=== PATIENT | female | born 1950 | race Caucasian/White ===

== ENCOUNTER 2016-09-04 14:47 | Inpatient (IN) | payer MEDICARE, OTHER ==
[2016-09-04 19:45] VITALS: BP 110/70
--- NOTE | 2016-09-04 19:45 | NUR ---
Patient arrived to the facility via gurney by [facility]. Diagnosis of Right hip fracture s/p Right hip nailing. Patient is alert and oriented x4. Patient verbally responsive and able to make needs known. Sister at bedside. No c/o pain and discomfort at this time. No acute distress. No SOB. Patient is on room air. Right hip suture site is intact. No s/s of bleeding. Dressing intact. Kept clean and dry. Dr. Alarcon in facility and made aware of admission. Dr. Alarcon went over pain medication for patient. New orders noted. Called Dr. Weinstein office to notify of new admission and to go over other medications. Dr. Rucker airfield operations specialist. Awaiting call back. All needs attended to promptly. Call light within reach. Will continue to monitor.
[2016-09-04] MEDS ORDERED: HYDROMORPHONE 1 MG/1 ML DISP.SYRIN IM PRN (20:00)
--- NOTE | 2016-09-04 20:05 | NUR ---
Still awaiting call back from . Called Dr. Weinstein office back and spoke to Soniya. Per Soniya, she will send message to Dr. Rucker.
--- NOTE | 2016-09-04 20:30 | NUR ---
Received call back from Dr. Rucker and went over patients medications. New orders noted and carried out.
[2016-09-04] MEDS ORDERED: ACET-2154 PO (20:34)
[2016-09-04] MEDS ORDERED: BISA-79 PO (20:36)
[2016-09-04] MEDS ORDERED: ONDA4TAB10 PO (20:46)
[2016-09-04] MEDS ORDERED: HYDR-4077 PO (20:46)
[2016-09-04] MEDS ORDERED: PANT40TA4 PO (20:51)
[2016-09-04] MEDS ORDERED: ZOLP5TAB2 PO (20:51)
[2016-09-04] MEDS ORDERED: MAGNESIUM HYDROXIDE 30 ML LIQUID UDC PO PRN (21:15)
[2016-09-04] MEDS ORDERED: ONDANSETRON HCL 4 MG TABLET PO PRN (21:15)
[2016-09-04] MEDS ORDERED: hydrALAZINE HCL 50 MG TABLET PO PRN (21:15)
[2016-09-04] MEDS ORDERED: BISACODYL 10 MG SUPP.RECT RC PRN (21:15)
[2016-09-04 21:28] VITALS: BP 110/70
--- NOTE | 2016-09-04 21:30 | NUR ---
Patient verbalized that she did not want to use a bedpan because she is unable to move and turn to either sides. Offered to put a diaper on her and she verbalized that she did not want to wear a diaper. Patient verbalized she wanted to use a bedside commode and would be able to with assistance. She verbalized she worked with PT at [facility] and was able to walk to and from the bathroom post surgery. Verbalized to patient that she would need to be evaluated by PT/OT at our facility before we are able to get her out of bed for her safety. Patient verbalized she would just urinate in her raul if needed. She verbalized she just wanted to be left alone and to turn lights off so she could get some rest. Patient also asked for pain medication. NURIA Rodriguez made aware. Reminded patient to call for help when assistance is needed. All needs attended to promptly. Call light within reach. Will continue to monitor.
--- NOTE | 2016-09-04 21:30 | NUR ---
Patient refused to be repositioned. She verbalized that she did not want to be touched and is unable to turn on either side. Explained to patient the risks and benefits of not being repositioned and educated patient on pressure ulcers. Patient still strongly refused to be touched. Encouraged patient to use call light when she urinates. Verbalizes understanding. All needs attended to promptly. Call light within reach. Will continue to monitor.
[2016-09-04] MEDS: OXYCODONE/APAP 5-325 MG TABLET PO PRN (21:41)
--- NOTE | 2016-09-04 22:00 | NUR ---
Patient is comfortably sleeping at this time. Breathing normally. No acute distress noted. No SOB. Will continue to monitor.
--- NOTE | 2016-09-05 07:28 | NUR ---
Pt slept well through out the night. Remains irritable and somewhat angry but able to calm down. Pt was able to urinate x1 with use of bedpan. No acute distress noted.
[2016-09-05] MEDS: PANTOPRAZOLE SODIUM 40 MG TABLET.DR PO SCH (07:52)
--- NOTE | 2016-09-05 07:55 | NUR ---
Received patient awake in bed. Alert and oriented x4. No complaints of pain and discomfort. Irritable but cooperative. Encouraged to make needs known and use call light. Call light within reach.
[2016-09-05 08:39] VITALS: BP 105/51
[2016-09-05] MEDS ORDERED: Z GUARD REMEDY PASTE 57 GM TUBE TOP PRN (10:15)
[2016-09-05] MEDS: ACETAMINOPHEN 325 MG TABLET PO PRN (10:31)
--- NOTE | 2016-09-05 10:34 | NUR ---
PATIENT TOLERATED THERAPY WITH MILD PAIN OVER LOWER BACK AND RIGHT LEG RATED 6/10. TYLENOL PRN GIVEN.
--- NOTE | 2016-09-05 16:00 | NUR ---
NO COMPLAINTS OF PAIN OR DISCOMFORT AT THIS TIME. DRESSING CHANGED OVER SURGICAL SITE DONE.
--- NOTE | 2016-09-05 19:30 | NUR ---
Received patient sleeping in bed, no s/s of distress. Call light within reach. Will continue to monitor.
[2016-09-05 21:40] VITALS: BP 112/53
[2016-09-05] MEDS: OXYCODONE/APAP 5-325 MG TABLET PO PRN (22:06)
[2016-09-06] MEDS: PANTOPRAZOLE SODIUM 40 MG TABLET.DR PO SCH ×2 (06:01→08:00)
--- NOTE | 2016-09-06 07:05 | NUR ---
Patient resting in bed, no s/s of distress. No complaints of pain during the shift. Call light kept within reach. Due meds given. Needs attended. Frequent checks done. Refused Protonix this morning, saying she already talked to the MD about not needing it. Endorsed accordingly.
[2016-09-06 08:17] LABS: BASOPHILS % (AUTO) 0.5 % (0.0-2.0); EOSINOPHILS # (AUTO) 0.1 K/uL (0.0-0.7); EOSINOPHILS % (AUTO) 2.6 % (0.0-7.0); HEMOGLOBIN 7.4 G/DL (12.0-16.0); LYMPHOCYTES # (AUTO) 0.8 K/UL (0.8-4.8); LYMPHOCYTES % (AUTO) 19.4 % (20.5-51.5); MEAN CORPUSCULAR HEMOGLOBIN 30.3 UUG (27.0-31.0); MEAN CORPUSCULAR HGB CONC 34 g/dL (32.0-37.0); MEAN CORPUSCULAR VOLUME 90.1 FL (81.0-99.0); MONOCYTES # (AUTO) 0.4 K/UL (0.1-1.30); NEUTROPHILS # (AUTO) 3.1 K/UL (1.8-8.9); NEUTROPHILS % (AUTO) 68.5 % (38.5-71.5); PLATELET COUNT (AUTO) 215 K/UL (150-450); WHITE BLOOD COUNT (AUTO) 4.4 K/UL (4.0-11.2)
[2016-09-06 08:23] LABS: CREATININE 0.6 mg/dL (0.6-1.3); MAGNESIUM 1.9 mg/dL (1.8-2.4); POTASSIUM 3.6 mmol/L (3.5-5.1)
--- NOTE | 2016-09-06 08:30 | NUR ---
NSG: Received patient awake in bed.Pleasant upon approach. Alert and oriented x4. No complaints of pain and discomfort. Irritable but cooperative. Encouraged to make needs known and use call light. Call light within reach.
[2016-09-06 08:42] LABS: RED BLOOD CELL COUNT(AUTO) 2.46 MIL/UL (4.2-5.4)
[2016-09-06 08:43] LABS: HEMATOCRIT 22.2 % (37-47)
--- NOTE | 2016-09-06 08:45 | NUR ---
Received a report from laboratory per Praneeth result of Hgb 7.4, Hct 22.2, RBC 2.46. Notified Dr. Rucker who is in the unit with no new orders at this time and that he will check on it
[2016-09-06] MEDS: OXYCODONE/APAP 5-325 MG TABLET PO PRN ×3 (08:54→21:06)
[2016-09-06] MEDS: LOSARTAN POTASSIUM 50 MG TABLET PO SCH (08:55)
[2016-09-06] MEDS: ENOXAPARIN SODIUM 40 MG/0.4 ML DISP.SYRIN SQ SCH (09:53)
[2016-09-06 11:12] VITALS: BP 114/57
[2016-09-06] MEDS: ACETAMINOPHEN 325 MG TABLET PO PRN (11:28)
--- NOTE | 2016-09-06 11:28 | NUR ---
nsg: patient c/o headache. tylenol 650 mg po given per patient requested.
--- NOTE | 2016-09-06 12:30 | NUR ---
nsg: patient stated i am feeling better now. no more headache. prn effective.
--- NOTE | 2016-09-06 14:42 | NUR ---
NSG: PATIENT C/O RIGHT HIP PAIN PERCOCET 10 MG PO GIVEN.
--- NOTE | 2016-09-06 15:45 | NUR ---
nsg:patient stated ,i am feeling better now. prn for pain effective.
--- NOTE | 2016-09-06 18:06 | NUR ---
NSG: REMAIN CALM AND COOPERATIVE WITH CARE. NO C/O PAIN OR DISCOMFORT THIS TIME. CONTINUE MONITORING FOR SAFETY.
--- NOTE | 2016-09-06 19:30 | NUR ---
Patient resting on her bed, no acute distress noted. Complains of some pain, will provide interventions. Call light within reach. Will continue to monitor.
--- NOTE | 2016-09-07 07:59 | NUR ---
Patient awake with no s/s of distress. No complaints of pain at this time. Call light kept within reach. Frequent checks done. Pain meds given last night as ordered. Verbalized relief after interventions. Endorsed accordingly.
[2016-09-07] MEDS: OXYCODONE/APAP 5-325 MG TABLET PO PRN ×2 (08:49→14:50)
[2016-09-07] MEDS: LOSARTAN POTASSIUM 50 MG TABLET PO SCH (08:50)
[2016-09-07] MEDS: ENOXAPARIN SODIUM 40 MG/0.4 ML DISP.SYRIN SQ SCH (08:56)
--- NOTE | 2016-09-07 09:00 | NUR ---
Patient complained of pain rated as 8/10 over Right hip radiating to knee. PRN medications given. Tolerated therapy well
[2016-09-07 10:12] VITALS: BP 133/72
--- NOTE | 2016-09-07 14:35 | NUR ---
Received patient awake in bed. Alert and oriented. No s/s of distress. Call light within reach
[2016-09-07 15:33] VITALS: BP 133/72
--- NOTE | 2016-09-07 16:00 | NUR ---
Patient requested pain medications pain rated as 8/10 over Right Hip. Tolerated therapy well.
--- NOTE | 2016-09-07 19:15 | NUR ---
Received report from NURIA Phipps. Pt currently in the bed, awake watching TV. Requested to have some mild pain meds before she sleeps. She reported to me what she did w/ PT/OT, she stated that she wants to get better so she go home right away.[id number] uses bedside commode.
--- NOTE | 2016-09-07 20:30 | NUR ---
Tylenol given for mild pain 3-4/10 located at right hip, julián intact CDI. Cleansed the site w/ damped NS, patted dry, applied new sterile dressing, CDI.
[2016-09-07] MEDS: ACETAMINOPHEN 325 MG TABLET PO PRN (20:47)
[2016-09-07 21:13] VITALS: BP 110/50
--- NOTE | 2016-09-08 | NUR ---
Sound asleep and appears comfortable.
--- NOTE | 2016-09-08 02:00 | NUR ---
Remained sound asleep.Breathing normally.
--- NOTE | 2016-09-08 04:00 | NUR ---
Sound asleep, breathing normally.Continue monitor
--- NOTE | 2016-09-08 06:43 | NUR ---
Protonix not available in the Py[facility], notified Coagulator, not given, will endorsed to day shift RN.
[2016-09-08] MEDS: PANTOPRAZOLE SODIUM 40 MG TABLET.DR PO SCH (07:00)
[2016-09-08 08:00] VITALS: BP 106/56
[2016-09-08] MEDS: LOSARTAN POTASSIUM 50 MG TABLET PO SCH (09:00)
--- NOTE | 2016-09-08 09:30 | NUR ---
Received patient awake in bed. Alert and oriented x4. No S/S of distress. Pain rated as 6/10 over right knee. PRN Tylenol 650n mg given. Call light within reach. Encouraged to call for needs
[2016-09-08] MEDS: ACETAMINOPHEN 325 MG TABLET PO PRN ×2 (09:57→20:13)
[2016-09-08] MEDS: ENOXAPARIN SODIUM 40 MG/0.4 ML DISP.SYRIN SQ SCH (10:01)
--- NOTE | 2016-09-08 10:30 | NUR ---
Patient still had no BM. Informed Dr. Alarcon, Ducolax PO 2 tabs daily PRN ordered. Offered to patient but opted to have Dulcolax tomorrow or tonight because she said she is expecting visitors.
--- NOTE | 2016-09-08 13:00 | NUR ---
Assisted patient to ambulate. Ambulated with rolling walker, stand by assist. With tolerable pain after ambulation. Offered pain medications but refused.
--- NOTE | 2016-09-08 20:00 | NUR ---
RECEIVED PATIENT AWAKE IN BED. PATIENT IS A/O X4. ASSISTED PATIENT TO BSC. DRESSING NOTED TO RIGHT HIP/LOWER LEG, CLEAN, DRY AND INTACT.
--- NOTE | 2016-09-08 20:15 | NUR ---
PATIENT ASSISTED BACK TO BED. DENIES NEEDS FOR "PAIN MEDICATION," BUT PATIENT IS REQUESTING FOR TYLENOL. PATIENT UNABLE TO HAVE BM AT THIS TIME. PATIENT GIVEN DULCOLAX 10MG PO PRN FOR CONSTIPATION AND TYLENOL 650MG PO PRN FOR MILD DISCOMFORT. NO RESP. DISTRESS NOTED. VSS. CALL LIGHT IN REACH. ALL NEEDS ATTENDED, WILL CONTINUE TO MONITOR.
[2016-09-08 20:21] VITALS: BP 114/55
[2016-09-08] MEDS ORDERED: BISACODYL 5 MG TABLET.DR PO PRN (21:00)
[2016-09-09] MEDS: PANTOPRAZOLE SODIUM 40 MG TABLET.DR PO SCH (06:12)
--- NOTE | 2016-09-09 06:55 | NUR ---
PATIENT AWAKE IN BED. DENIES PAIN. DRESSING NOTED TO RIGHT HIP, C/D/I. SLEPT WELL. CALL LIGHT IN REACH. ALL NEEDS ATTENDED. WILL CONTINUE TO MONITOR.
[2016-09-09 07:27] LABS: BASOPHILS % (AUTO) 0.4 % (0.0-2.0); EOSINOPHILS # (AUTO) 0.1 K/uL (0.0-0.7); EOSINOPHILS % (AUTO) 1.6 % (0.0-7.0); HEMOGLOBIN 7.9 G/DL (12.0-16.0); LYMPHOCYTES # (AUTO) 0.6 K/UL (0.8-4.8); LYMPHOCYTES % (AUTO) 12.1 % (20.5-51.5); MEAN CORPUSCULAR HEMOGLOBIN 30.5 UUG (27.0-31.0); MEAN CORPUSCULAR HGB CONC 33 g/dL (32.0-37.0); MEAN CORPUSCULAR VOLUME 91.4 FL (81.0-99.0); MONOCYTES # (AUTO) 0.4 K/UL (0.1-1.30); MONOCYTES % (AUTO) 8.9 % (0.0-11.0); NEUTROPHILS # (AUTO) 3.7 K/UL (1.8-8.9); PLATELET COUNT (AUTO) 365 K/UL (150-450); RED BLOOD CELL COUNT(AUTO) 2.61 MIL/UL (4.2-5.4); WHITE BLOOD COUNT (AUTO) 4.8 K/UL (4.0-11.2)
[2016-09-09 07:42] LABS: HEMATOCRIT 23.9 % (37-47)
--- NOTE | 2016-09-09 07:50 | NUR ---
NSG: PATIENT HGB 7.9 AND HCT 23.[address] torrez.
[2016-09-09 08:00] VITALS: BP 117/55
[2016-09-09] MEDS: ACETAMINOPHEN 325 MG TABLET PO PRN ×3 (08:18→21:12)
[2016-09-09] MEDS: LOSARTAN POTASSIUM 50 MG TABLET PO SCH (08:19)
[2016-09-09] MEDS: ENOXAPARIN SODIUM 40 MG/0.4 ML DISP.SYRIN SQ SCH (08:20)
--- NOTE | 2016-09-09 08:20 | NUR ---
NSG:Received patient sitting up in bed. Alert and oriented x4. No S/S of distress. patient c/o pain 6/10 over right knee. PRN Tylenol 650n mg given. Call light within reach. Encouraged to call for needs.
--- NOTE | 2016-09-09 08:20 | NUR ---
NSG: PATIENT C/O GEN: PAIN. TYLENOL 650 MG PO GIVEN PER PATIENT REQUESTED.
[2016-09-09 08:46] LABS: CREATININE 0.6 mg/dL (0.6-1.3); POTASSIUM 4.3 mmol/L (3.5-5.1)
--- NOTE | 2016-09-09 09:00 | NUR ---
nsg: patient HGB 7.9 AND HCT 23.9, Dr. guzman. D NOTIFIED WAS IN UNIT THIS TIME. STATED OK. NO NEW ORDER RECEIVED.
--- NOTE | 2016-09-09 09:20 | NUR ---
NSG: PATIENT STATED I AM FEELING BETTER NOW. PRN EFFECTIVE.
--- NOTE | 2016-09-09 14:07 | NUR ---
NSG: PATIENT C/O RIGHT KNEE. TYLENOL 650 MG PO GIVEN PER PATIENT REQUESTED.
--- NOTE | 2016-09-09 18:30 | NUR ---
pt states that she is in pain but refuses percocet because she states that it causes constipation. pt tried going to have a bm but states that it could not go. will endorse to nightman nurse about taping surgical wound and bm stool sample to be collected.
[2016-09-09 20:00] VITALS: BP 115/53
[2016-09-09] MEDS: ZOLPIDEM 5 MG TABLET PO PRN (21:12)
--- NOTE | 2016-09-10 05:16 | NUR ---
PT C/O GEN PAIN LAST NIGHT, WAS GIVEN TYLENOL REQUESTED AND PRESCRIBED, ALSO GIVEN AMBIEN REQUESTED, PT SLEPT MOST SHIFT. ASSISTED WITH ADLS. IN NO ACUTE DISTRESS. SAFETY MAINTAINED THROUGHOUT SHIFT. CALL LIGHT WITHIN REACH.
[2016-09-10] MEDS: PANTOPRAZOLE SODIUM 40 MG TABLET.DR PO SCH (06:28)
--- NOTE | 2016-09-10 06:36 | NUR ---
PT REFUSED PROTONIX IN AM. "I DON'T NEED IT."
[2016-09-10 07:45] LABS: BASOPHILS % (AUTO) 0.4 % (0.0-2.0); EOSINOPHILS # (AUTO) 0.1 K/uL (0.0-0.7); HEMATOCRIT 25.6 % (37-47); HEMOGLOBIN 8.5 G/DL (12.0-16.0); LYMPHOCYTES # (AUTO) 0.7 K/UL (0.8-4.8); LYMPHOCYTES % (AUTO) 13.3 % (20.5-51.5); MEAN CORPUSCULAR HEMOGLOBIN 30.2 UUG (27.0-31.0); MEAN CORPUSCULAR HGB CONC 33 g/dL (32.0-37.0); MEAN CORPUSCULAR VOLUME 91.3 FL (81.0-99.0); MONOCYTES # (AUTO) 0.4 K/UL (0.1-1.30); MONOCYTES % (AUTO) 8.1 % (0.0-11.0); NEUTROPHILS # (AUTO) 4.2 K/UL (1.8-8.9); NEUTROPHILS % (AUTO) 76.2 % (38.5-71.5); PLATELET COUNT (AUTO) 437 K/UL (150-450); WHITE BLOOD COUNT (AUTO) 5.4 K/UL (4.0-11.2)
[2016-09-10 08:00] VITALS: BP 109/49
[2016-09-10] MEDS: ENOXAPARIN SODIUM 40 MG/0.4 ML DISP.SYRIN SQ SCH (08:37)
[2016-09-10] MEDS: ACETAMINOPHEN 325 MG TABLET PO PRN ×2 (08:38→18:16)
[2016-09-10] MEDS: LOSARTAN POTASSIUM 50 MG TABLET PO SCH (08:38)
[2016-09-10] MEDS ORDERED: SENNOSIDES/DOCUSATE SODIUM TABLET PO SCH (09:00)
[2016-09-10 14:06] LABS: VIT D, 25-HYDROXY 65.6 ng/mL (30.0-100.0)
--- NOTE | 2016-09-10 18:58 | NUR ---
pt still had no bowel movement. pt tolerated pt well. pt had dresssing changed. pt had no signs of distress nor complications. pt still didnt get enough nutrition. pt still refuses protonix. pt was helped to the bathroom. will continue to endorse stool sample.
--- NOTE | 2016-09-10 19:30 | NUR ---
Patient resting on her bed. No s/s of distress. Respirations even and unlabored. Reminded to call for help whenever necessary. Call light within reach. Will continue to monitor.
[2016-09-10] MEDS ORDERED: DOCUSATE SODIUM 100 MG CAPSULE PO SCH (21:00)
[2016-09-10] MEDS: ZOLPIDEM 5 MG TABLET PO PRN (21:04)
[2016-09-10 22:13] VITALS: BP 125/52
--- NOTE | 2016-09-11 06:59 | NUR ---
Patient asleep in bed with no s/s of distress. No complaints of pain at this time. Slept well through the night, Ambien administered per patient's request. . Due meds given. Needs attended. Comfort measures provided. Call light kept within reach. Safety precautions in place. X-ray of right knee ordered for this morning as ordered by Dr. Alarcon. Frequent checks done. Endorsed accordingly.
[2016-09-11] MEDS: PANTOPRAZOLE SODIUM 40 MG TABLET.DR PO SCH (07:00)
--- NOTE | 2016-09-11 07:25 | NUR ---
Refused Protonix despite health teaching.
[2016-09-11 08:20] VITALS: BP 121/70
--- NOTE | 2016-09-11 08:30 | NUR ---
RECEIVED PATIENT AWAKE, ALERT AND ORIENTED X4. NOT IN ANY FORM OF DISTRESS. ASSISTED PATIENT TO COMMODE. WITH + BM. STOOL COLLECTED FOR OCCULT BLOOD ORDERED BY .
[2016-09-11] MEDS: ACETAMINOPHEN 325 MG TABLET PO PRN ×2 (09:43→16:37)
[2016-09-11] MEDS: SENNOSIDES/DOCUSATE SODIUM TABLET PO SCH (09:45)
[2016-09-11] MEDS: LOSARTAN POTASSIUM 50 MG TABLET PO SCH (09:45)
[2016-09-11] MEDS: ENOXAPARIN SODIUM 40 MG/0.4 ML DISP.SYRIN SQ SCH (09:47)
--- NOTE | 2016-09-11 09:50 | NUR ---
PATIENT COMPLAINED OF KNEE PAIN RATED 7/10 AFTER THERAPY. PRN TYLENOL GIVEN. WAS ABLE TO AMBULATE AND USE STAIRS. ASSISTED TO BED. WITH SISTER AT BEDSIDE
--- NOTE | 2016-09-11 11:25 | NUR ---
Electrostatic Painter Sw met with the patient at bedside to assess pt needs and provide support. The patient is a 65 year old female admitted for right hip fracture S/P Right Hip ORIF, functional impairment, and impaired mobility. The patient was laying in her bed during the assessment wit her sister/emergency contact, Shiela Hand [ ] at her bedside. The patient was calm and cooperative the interview. The patient's mood was irritable and somewhat guarded. The patient stated that she has been very frustrated recently due to her condition and impaired mobility. Per pt, she lives at home independently [[id number] [place] [address]; ]. The patient acknowledged her condition and need for intervention. The patient stated that she has strong social support from her sister Shiela. Social History: The patient stated that she was born in [facility] and raised in [place]. The patient stated that she was raised primarily by her mother since her parents were when she was young. The patient then moved to [place] in 1969. The patient stated that she has never been and that she has no children. 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 The patient stated that her goal is to return home and to be able to walk independently again. The patient stated that she is usually a very active person and that she has been feeling frustrated and depressed after she fell and fractured her hip. The patient stated that her relatives are coming into town to stay with her on 09/19/16 and will be staying with her at her apartment. SW engaged in active listening and provided supportive counseling during the interview to address patient's depressive symptoms related to her decline in functioning. SW will continue to address issues of loss related to recent hospitalization. SW will encourage compliance with rehab goals. SW will be available as needed.
--- NOTE | 2016-09-11 14:31 | NUR ---
Rehab Team Conference Meeting 09/11/16
--- NOTE | 2016-09-11 16:35 | NUR ---
Tolerated therapy but patient complained of R knee pain rated as 6/10. Tylenol given.
--- NOTE | 2016-09-11 18:00 | NUR ---
Patient resting in bed. No complaints of Right knee pain at the moment.
--- NOTE | 2016-09-11 20:00 | NUR ---
PATIENT AWAKE IN BED. A/O X4. DENIES PAIN OR DISCOMFORT. NO RESP. DISTRESS NOTED. DRESSING NOTED TO RIGHT HIP, THIGH AND LATERAL KNEE. VSS. CALL LIGHT IN REACH. ALL NEEDS ATTENDED. WILL CONTINUE TO MONITOR AND ASSESS.
[2016-09-11 20:12] VITALS: BP 100/49
--- NOTE | 2016-09-11 21:15 | NUR ---
DRESSING CHANGED TO RIGHT HIP. PICTURES TAKEN AND PLACED IN CHART. PATIENT DENIES PAIN OR DISCOMFORT. WILL CONTINUE TO MONITOR AND ASSESS.
[2016-09-11] MEDS: ZOLPIDEM 5 MG TABLET PO PRN (21:46)
[2016-09-12] MEDS: PANTOPRAZOLE SODIUM 40 MG TABLET.DR PO SCH (06:21)
--- NOTE | 2016-09-12 07:04 | NUR ---
PATIENT ASLEEP IN BED. SLEPT WELL THROUGHOUT THE NIGHT. DRESSING CLEAN, DRY AND INTACT. CALL LIGHT IN REACH. ALL NEEDS ATTENDED. WILL CONTINUE TO MONITOR.
[2016-09-12 07:45] LABS: BASOPHILS % (AUTO) 0.6 % (0.0-2.0); EOSINOPHILS # (AUTO) 0.2 K/uL (0.0-0.7); HEMOGLOBIN 9.6 G/DL (12.0-16.0); LYMPHOCYTES % (AUTO) 14.4 % (20.5-51.5); MEAN CORPUSCULAR HEMOGLOBIN 30.8 UUG (27.0-31.0); MEAN CORPUSCULAR HGB CONC 33 g/dL (32.0-37.0); MEAN CORPUSCULAR VOLUME 92.4 FL (81.0-99.0); MONOCYTES # (AUTO) 0.4 K/UL (0.1-1.30); MONOCYTES % (AUTO) 5.6 % (0.0-11.0); NEUTROPHILS # (AUTO) 5.2 K/UL (1.8-8.9); NEUTROPHILS % (AUTO) 76.4 % (38.5-71.5)
[2016-09-12 07:54] LABS: HEMATOCRIT 28.7 % (37-47); PLATELET COUNT (AUTO) 622 K/UL (150-450); RED BLOOD CELL COUNT(AUTO) 3.11 MIL/UL (4.2-5.4); WHITE BLOOD COUNT (AUTO) 6.8 K/UL (4.0-11.2)
[2016-09-12 08:00] LABS: BILIRUBIN,TOTAL 1.9 mg/dL (0.2-1.0); CREATININE 0.7 mg/dL (0.6-1.3); MAGNESIUM 1.9 mg/dL (1.8-2.4); PHOSPHOROUS 4.1 mg/dL (2.5-4.9); POTASSIUM 3.8 mmol/L (3.5-5.1); TOTAL PROTEIN, SERUM 6.7 g/dL (6.4-8.2)
[2016-09-12 08:03] VITALS: BP 122/59
--- NOTE | 2016-09-12 08:30 | NUR ---
RECEIVED PATIENT AWAKE IN BED. NO S/S OF DISTRESS. NO COMPLAINTS OF PAIN OR DISCOMFORT AT THE MOMENT. CALL LIGHT WITHIN REACH. DISCUSSED SCHEDULE FOR OT AND PT.
[2016-09-12] MEDS: SENNOSIDES/DOCUSATE SODIUM TABLET PO SCH (09:00)
[2016-09-12] MEDS: ENOXAPARIN SODIUM 40 MG/0.4 ML DISP.SYRIN SQ SCH (09:03)
[2016-09-12] MEDS: LOSARTAN POTASSIUM 50 MG TABLET PO SCH (09:04)
[2016-09-12 09:15] LABS: *OCCULT BLOOD STOOL POSITIVE (NEGATIVE)
[2016-09-12] MEDS: ACETAMINOPHEN 325 MG TABLET PO PRN ×3 (11:30→22:36)
--- NOTE | 2016-09-12 11:30 | NUR ---
PARTICIPATED WITH PHYSICAL THERAPY, PATIENT IN PAIN AFTER THERAPY RATED 6/10 OVER RIGHT KNEE. PRN TYLENOL GIVEN.
--- NOTE | 2016-09-12 17:30 | NUR ---
Patient participated with occupational therapy well. Pain over knee noted rated as 6/10. Tylenol PRN given
--- NOTE | 2016-09-12 19:00 | NUR ---
PATIENT ALERT ORIENTED, NO SOB NO CHEST PAIN, USES COMMODE FOR BLADDER ELIMINATIONS, DENIES PAIN AT THIS TIME. CONT TO MONITOR.
[2016-09-12 20:00] VITALS: BP 112/62
[2016-09-13] MEDS: ZOLPIDEM 5 MG TABLET PO PRN ×2 (00:10→23:58)
--- NOTE | 2016-09-13 05:06 | NUR ---
PATIENT SLEPT MOST OF THE NIGHT, NO SOB NO CHEST PAIN, NO COMPLAIN OF PAIN AT THIS TIME, NO S/S OF DISTRESS.
[2016-09-13] MEDS: PANTOPRAZOLE SODIUM 40 MG TABLET.DR PO SCH (06:20)
[2016-09-13 08:28] VITALS: BP 115/71
[2016-09-13] MEDS: SENNOSIDES/DOCUSATE SODIUM TABLET PO SCH (08:55)
[2016-09-13] MEDS: LOSARTAN POTASSIUM 50 MG TABLET PO SCH (08:55)
[2016-09-13] MEDS: ENOXAPARIN SODIUM 40 MG/0.4 ML DISP.SYRIN SQ SCH (08:56)
[2016-09-13] MEDS: ACETAMINOPHEN 325 MG TABLET PO PRN ×3 (08:57→21:11)
--- NOTE | 2016-09-13 19:06 | NUR ---
Patient had day today. Worked with PT OT and had shower. R leg dressing changed. PRN tylenol given
[2016-09-13 20:50] VITALS: BP 109/64
--- NOTE | 2016-09-14 06:11 | NUR ---
PT RIGHT HIP S/P ORIF WITH INTACT DRESSING, AWAITING FOR TALA REMOVAL BY FRIDAY, USES FWW TO BSC. NO BM OVERNIGHT,SLEPT WELL,VSS,AFEBRILE, TYLENOL FOR PAIN WITH GOOD RELIEF.
[2016-09-14] MEDS: PANTOPRAZOLE SODIUM 40 MG TABLET.DR PO SCH (06:29)
--- NOTE | 2016-09-14 07:15 | NUR ---
REC'D BEDSIDE SBAR REPORT, PT AWAKE, DENIES ANY DISTRESS.
[2016-09-14 08:00] VITALS: BP 122/62
[2016-09-14] MEDS: SENNOSIDES/DOCUSATE SODIUM TABLET PO SCH (10:04)
[2016-09-14] MEDS: LOSARTAN POTASSIUM 50 MG TABLET PO SCH (10:04)
[2016-09-14] MEDS: ENOXAPARIN SODIUM 40 MG/0.4 ML DISP.SYRIN SQ SCH (10:07)
[2016-09-14 11:28] VITALS: BP 123/69
--- NOTE | 2016-09-14 11:30 | NUR ---
PHAMARINEY NOTE, MEDS ADMINISTERED PAST 0900 DUE TO AN ACUTE PT ISSUE WITH HEPARIN ORDER, AB NORMAL LAB RESULTS.
[2016-09-14] MEDS: ACETAMINOPHEN 325 MG TABLET PO PRN ×2 (13:17→20:11)
[2016-09-14 18:51] VITALS: BP 122/66
--- NOTE | 2016-09-14 19:18 | NUR ---
bedside sbar report to diana gay. pt resting , no distress noted.
[2016-09-14] MEDS: CYCLOBENZAPRINE HCL 10 MG TABLET PO PRN (20:11)
[2016-09-14 20:36] VITALS: BP 103/58
[2016-09-14] MEDS: ZOLPIDEM 5 MG TABLET PO PRN (23:54)
[2016-09-15] MEDS: PANTOPRAZOLE SODIUM 40 MG TABLET.DR PO SCH (06:06)
--- NOTE | 2016-09-15 07:00 | NUR ---
pt get nauseated but no vomiting,spit only yellow bile . still refused protonix but ok with zofran.denies any pain ,slept well, had flexeril and tylenol last night with good relief,vss,afebrile,all needs attended, bedside commode.
[2016-09-15 08:00] VITALS: BP 119/60
[2016-09-15] MEDS: LOSARTAN POTASSIUM 50 MG TABLET PO SCH (08:36)
[2016-09-15] MEDS: SENNOSIDES/DOCUSATE SODIUM TABLET PO SCH (08:36)
[2016-09-15] MEDS: ENOXAPARIN SODIUM 40 MG/0.4 ML DISP.SYRIN SQ SCH (08:38)
[2016-09-15] MEDS: ACETAMINOPHEN 325 MG TABLET PO PRN ×2 (09:14→20:51)
--- NOTE | 2016-09-15 18:11 | NUR ---
Patient had a good day today. Patient walked through hallways with RN because she wasn't scheduled for PT today. Patient did receive PRN Tylenol for knee pain. Dressing on right leg was changed.
[2016-09-15 20:20] VITALS: BP 113/57
[2016-09-15] MEDS: CYCLOBENZAPRINE HCL 10 MG TABLET PO PRN (20:51)
[2016-09-15] MEDS: ZOLPIDEM 5 MG TABLET PO PRN (23:57)
[2016-09-16] MEDS: PANTOPRAZOLE SODIUM 40 MG TABLET.DR PO SCH (06:21)
--- NOTE | 2016-09-16 06:49 | NUR ---
no significant changes overnight ,slept well,call light at reached,all needs attended.
--- NOTE | 2016-09-16 07:20 | NUR ---
rec'd bedside sbar report. pt awake, denied any distress.
[2016-09-16 07:46] VITALS: BP 118/62
[2016-09-16] MEDS: LOSARTAN POTASSIUM 50 MG TABLET PO SCH (08:28)
[2016-09-16] MEDS: SENNOSIDES/DOCUSATE SODIUM TABLET PO SCH (08:29)
[2016-09-16] MEDS: ENOXAPARIN SODIUM 40 MG/0.4 ML DISP.SYRIN SQ SCH (08:31)
--- NOTE | 2016-09-16 12:08 | NUR ---
DR MURRAY EARLIER ARRIVED AND REMOVED ALL THE TALA THE PT HAD ON HER RLE. SITE IS CLEAN AND DRY.
[2016-09-16] MEDS: ACETAMINOPHEN 325 MG TABLET PO PRN ×2 (14:05→20:52)
--- NOTE | 2016-09-16 19:06 | NUR ---
PT TO BE D/C'D HOME TOMMORROW, PT HAPPY. BEDSIDE SBAR REPORT TO PM SHIFT. PT PROGRESSING TOWARDS GOALS.
[2016-09-16 20:19] VITALS: BP 101/52
[2016-09-16] MEDS: CYCLOBENZAPRINE HCL 10 MG TABLET PO PRN (20:52)
[2016-09-17] MEDS: ZOLPIDEM 5 MG TABLET PO PRN
[2016-09-17] MEDS: PANTOPRAZOLE SODIUM 40 MG TABLET.DR PO SCH (06:11)
--- NOTE | 2016-09-17 06:55 | NUR ---
PT SLEPT WELL OVERNIGHT ,MEDICATED X1 WITH TYLENOL WITH FLEXERIL, NO CHANGES OVERNIGHT,VSS,AFEBRILE.ALL NEEDS ATTENDED.
[2016-09-17 07:08] LABS: BASOPHILS % (AUTO) 0.7 % (0.0-2.0); EOSINOPHILS # (AUTO) 0.2 K/uL (0.0-0.7); EOSINOPHILS % (AUTO) 3.3 % (0.0-7.0); HEMOGLOBIN 9.9 G/DL (12.0-16.0); LYMPHOCYTES # (AUTO) 0.9 K/UL (0.8-4.8); LYMPHOCYTES % (AUTO) 20.1 % (20.5-51.5); MEAN CORPUSCULAR HEMOGLOBIN 30.5 UUG (27.0-31.0); MEAN CORPUSCULAR HGB CONC 33 g/dL (32.0-37.0); MEAN CORPUSCULAR VOLUME 92.5 FL (81.0-99.0); MONOCYTES # (AUTO) 0.4 K/UL (0.1-1.30); MONOCYTES % (AUTO) 7.8 % (0.0-11.0); NEUTROPHILS # (AUTO) 3.1 K/UL (1.8-8.9); NEUTROPHILS % (AUTO) 68.1 % (38.5-71.5); PLATELET COUNT (AUTO) 640 K/UL (150-450); RED BLOOD CELL COUNT(AUTO) 3.24 MIL/UL (4.2-5.4); WHITE BLOOD COUNT (AUTO) 4.6 K/UL (4.0-11.2)
[2016-09-17 07:46] LABS: CREATININE 0.7 mg/dL (0.6-1.3); MAGNESIUM 1.8 mg/dL (1.8-2.4); PHOSPHOROUS 3.5 mg/dL (2.5-4.9); POTASSIUM 3.7 mmol/L (3.5-5.1)
[2016-09-17 07:53] LABS: BILIRUBIN,DIRECT 0.2 mg/dL (0.0-0.2); BILIRUBIN,TOTAL 1.2 mg/dL (0.2-1.0); TOTAL PROTEIN, SERUM 6.2 g/dL (6.4-8.2)
--- NOTE | 2016-09-17 08:00 | NUR ---
Received patient awake in bed. No s/s of distress. Alert and oriented. No complaints of pain at the moment. Call light within reach.
[2016-09-17] MEDS: ENOXAPARIN SODIUM 40 MG/0.4 ML DISP.SYRIN SQ SCH (08:23)
[2016-09-17 08:28] VITALS: BP 122/62
[2016-09-17] MEDS: SENNOSIDES/DOCUSATE SODIUM TABLET PO SCH (08:28)
[2016-09-17] MEDS: LOSARTAN POTASSIUM 50 MG TABLET PO SCH (08:28)
--- NOTE | 2016-09-17 09:34 | NUR ---
For discharge today. Wound care done with steri strips instructed patient on proper wound care. Informed Dr. Weinstein of discharge. Med reconciliation done and prescriptions done by Dr. Weinstein.
--- NOTE | 2016-09-17 12:00 | NUR ---
PATIENT DISCHARGED IN STABLE CONDITION. NO COMPLAINTS OF PAIN. PATIENT EDUCATION ON WOUND CARE, DIET, DVT AND MEDICATIONS GIVEN. REFUSED PHARMACY CONSULTATION FOR MEDICATIONS. INFORMED PATIENT TO FOLLOW UP WITH PCP ON OCTOBER 01 AT 13:30 AND TO TAKE HOME MEDICATIONS PRESCRIBED. WENT HOME AMBULATORY WITH FRONT WHEEL WALKER, ACCOMPANIED BY SISTER.
== END 2016-09-17 12:00 | disposition home health service (06) | DRG 561 ==
PROVIDERS: ADMIT Physical Medicine & Rehabilitation Pain Medicine; ATTEND Physical Medicine & Rehabilitation Pain Medicine
DX: S72.001D Fracture of unspecified part of neck of right femur, subsequent encounter for closed fracture with routine healing (principal); W18.30XD Fall on same level, unspecified, subsequent encounter; R53.1 Weakness; Z98.890 Other specified postprocedural states; D64.9 Anemia, unspecified; I10 Essential (primary) hypertension; K59.00 Constipation, unspecified; Z86.14 Personal history of Methicillin resistant Staphylococcus aureus infection; Z87.01 Personal history of pneumonia (recurrent); I95.9 Hypotension, unspecified
CPT/HCPCS: 36415; 73560; 82306; 82652; 83550; 83735; 83970; 84100; 85025; 92523; 97110; 97112; 97116; 97161; 97530; 97535; A4217; A4663; J1650; Q0162